=== PATIENT | female | born 1970 ===

== ENCOUNTER → 2022-01-09 | Outpatient (CLI) | payer BC | END | disposition home or self-care (01) | LOC: MAMMO 01-01 13:30 | PROVIDERS: ATTEND Internal Medicine | DX: M19.90 Unspecified osteoarthritis, unspecified site (principal); Z98.82 Breast implant status; Z72.0 Tobacco use ==

== ENCOUNTER 2023-03-18 13:03 | Emergency (ER) | payer BC ==
[~2023-03-18] VITALS: Ht 170.1 cm; Wt 74.8 kg
[~2023-03-18 13:03] MED LIST: ATORVASTATIN CA10 M1 PO; CARAFATE1 GM PO; MELOXICAM15 MG PO; PROTONIX40 M1 IV; TRAZODONE50 MG PO; ZANAFLEX4 MG PO
[2023-03-18] MEDS ORDERED: Ondansetron Hydrochloride 4 MG/2 ML VIAL IV ONE (13:25)
[2023-03-18] MEDS ORDERED: SODIUM CHLORIDE 0.9% 1,000 ML IV ONE ×2 (13:25→16:35)
[2023-03-18] MEDS ORDERED: FAMOTIDINE 50 ML IV ONE (13:25)
[2023-03-18] MEDS ORDERED: IOHEXOL 300 MG/ML 100 ML VIAL IV ONE (13:30)
[2023-03-18 14:02] LABS: BASO % 0.4 % (0.0-1.0); EOS # 0.1 10*3/uL (0.0-0.4); EOS % 0.6 % (1.0-4.0); HEMATOCRIT 48.6 % (37.0-47.0); LYMPH # 1.2 10*3/uL (1.3-4.4); MEAN CELL VOLUME 96.4 fl (81.0-99.0); MEAN CORPUSCULAR HGB 31.3 pg (27.0-31.0); MEAN CORPUSCULAR HGB CONC 32.5 g/dl (33.0-37.0); MEAN PLATELET VOLUME 9.3 fl (9.6-12.3); MONO # 1.3 10*3/uL (0.1-1.0); MONO % 13.1 % (3.0-9.0); NEUT # 7.4 10*3/uL (2.3-7.9); NEUT % 73.8 % (47.0-73.0); PLATELET COUNT AUTOMATED 249 10*3/uL (130-400); RED BLOOD COUNT 5.04 10*6/uL (4.10-5.10)
[2023-03-18 14:17] LABS: ACT PARTIAL THROMBO TIME 26.5 SECONDS (20.0-32.1)
[2023-03-18 14:30] LABS: POTASSIUM 3.7 mmol/L (3.4-5.1); TOTAL PROTEIN 7.6 gm/dL (6.0-8.0)
== END 2023-03-18 20:30 | disposition short-term general hospital (02) ==
LOC: ED 13:03
PROVIDERS: Physician Assistant Medical
DX: K46.0 Unspecified abdominal hernia with obstruction, without gangrene (principal); N17.9 Acute kidney failure, unspecified; R11.2 Nausea with vomiting, unspecified; K56.609 Unspecified intestinal obstruction, unspecified as to partial versus complete obstruction; Z98.51 Tubal ligation status; Z98.890 Other specified postprocedural states; F17.210 Nicotine dependence, cigarettes, uncomplicated

== ENCOUNTER → 2023-05-20 | Outpatient (CLI) | payer BC | END | disposition home or self-care (01) | LOC: RAD 02:06 | PROVIDERS: ATTEND Internal Medicine | DX: M50.30 Other cervical disc degeneration, unspecified cervical region (principal); M48.02 Spinal stenosis, cervical region; M25.561 Pain in right knee ==

== ENCOUNTER → 2023-07-28 | Outpatient (CLI) | payer BC | END | disposition home or self-care (01) | LOC: ORTHO 01:16 | PROVIDERS: ATTEND Orthopaedic Surgery | DX: M19.041 Primary osteoarthritis, right hand (principal); M79.641 Pain in right hand ==

== ENCOUNTER → 2023-10-03 | Outpatient (CLI) | payer BC | END | disposition home or self-care (01) | LOC: US 08:41 | PROVIDERS: ATTEND Internal Medicine | DX: K76.0 Fatty (change of) liver, not elsewhere classified (principal); M47.812 Spondylosis without myelopathy or radiculopathy, cervical region; M48.02 Spinal stenosis, cervical region; R10.32 Left lower quadrant pain; M54.2 Cervicalgia; Z90.49 Acquired absence of other specified parts of digestive tract ==

== ENCOUNTER → 2024-04-12 | Day surgery (SDC) | payer BC ==
[~2024-04-12] VITALS: Ht 172.7 cm; Wt 81.6 kg
[~2024-04-12] MED LIST changes: +ATORVASTATIN CA40 M1 PO; +BUPivacaine 0.5% 30 ML IV ONE; +HYDROCODONE-AC1 EAC1 PO; +Lactated Ringer's Solution 1,000 ML IV ONE; +Lidocaine Hydrochloride 30 ML VIAL ONE; +Lidocaine Hydrochloride 5 ML VIAL IV ONE; +NEURONTIN300 MG PO; +PANTOPRAZOLE SO40 MG PO; +PROPOFOL 200 MG/20 ML VIAL IV ONE; +TRAZODONE100 MG PO; +VISTARIL25 MG PO; +ceFAZolin sodium 2GM/20ML IV ONE; +ceFAZolin sodium/sodium chlor 20 ML IV ONE
[2024-04-12 09:09] VITALS: BP 148/82
[2024-04-12 11:24] VITALS: BP 132/75
[2024-04-12 11:39] VITALS: BP 143/68
[2024-04-12 11:52] VITALS: BP 146/71
== END | disposition home or self-care (01) ==
LOC: SDC 03-25 08:45
PROVIDERS: ATTEND Surgery
DX: C76.42 Malignant neoplasm of left upper limb (principal); E78.00 Pure hypercholesterolemia, unspecified; K21.9 Gastro-esophageal reflux disease without esophagitis; F41.9 Anxiety disorder, unspecified; F17.210 Nicotine dependence, cigarettes, uncomplicated; F10.90 Alcohol use, unspecified, uncomplicated; Z98.51 Tubal ligation status; Z90.49 Acquired absence of other specified parts of digestive tract; Z98.82 Breast implant status; Z98.890 Other specified postprocedural states; Z79.899 Other long term (current) drug therapy; Z91.048 Other nonmedicinal substance allergy status; Z83.3 Family history of diabetes mellitus

== ENCOUNTER → 2024-10-12 | Outpatient (CLI) | payer BC ==
[~2024-10-12] MED LIST changes: -BUPivacaine 0.5% 30 ML IV ONE; -Lactated Ringer's Solution 1,000 ML IV ONE; -Lidocaine Hydrochloride 30 ML VIAL ONE; -Lidocaine Hydrochloride 5 ML VIAL IV ONE; -PROPOFOL 200 MG/20 ML VIAL IV ONE; -ceFAZolin sodium 2GM/20ML IV ONE; -ceFAZolin sodium/sodium chlor 20 ML IV ONE
== END | disposition home or self-care (01) ==
LOC: US 08:16
PROVIDERS: ATTEND Internal Medicine
DX: K43.9 Ventral hernia without obstruction or gangrene (principal)

== ENCOUNTER → 2024-10-25 | Outpatient (CLI) | payer BC | LOC: ORTHO 01:44 | PROVIDERS: ATTEND Orthopaedic Surgery | DX: M19.011 Primary osteoarthritis, right shoulder (principal); M79.641 Pain in right hand ==

== ENCOUNTER → 2024-10-29 | Outpatient (CLI) | payer BC | END | disposition home or self-care (01) | LOC: RAD 08:33 | PROVIDERS: ATTEND Internal Medicine | DX: M47.817 Spondylosis without myelopathy or radiculopathy, lumbosacral region (principal); M47.815 Spondylosis without myelopathy or radiculopathy, thoracolumbar region; M41.85 Other forms of scoliosis, thoracolumbar region; M85.88 Other specified disorders of bone density and structure, other site; M54.9 Dorsalgia, unspecified ==

== ENCOUNTER → 2024-12-02 | Day surgery (SDC) | payer BC ==
[~2024-12-02] VITALS: Ht 170.1 cm; Wt 87.1 kg
[~2024-12-02] MED LIST changes: +Lactated Ringer's Solution 1,000 ML IV ONE; +Lidocaine Hydrochloride 2% 5 ML SDV IV ONE; +Lidocaine Hydrochloride 30 ML VIAL ONE; +Midazolam Hydrochloride 2 MG/2 ML VIAL IV ONE; +Ondansetron Hydrochloride 4 MG/2 ML VIAL IV ONE; +PROPOFOL 200 MG/20 ML VIAL IV ONE; +ceFAZolin sodium/sodium chlor 20 ML IV ONE
[2024-12-02 08:36] VITALS: BP 107/84
[2024-12-02 09:52] VITALS: BP 103/62
[2024-12-02 10:07] VITALS: BP 100/54
[2024-12-02 10:22] VITALS: BP 120/65
== END | disposition home or self-care (01) ==
LOC: SDC 11-26 10:15
PROVIDERS: ATTEND Orthopaedic Surgery
DX: G56.01 Carpal tunnel syndrome, right upper limb (principal); E78.5 Hyperlipidemia, unspecified; E78.00 Pure hypercholesterolemia, unspecified; F32.A Depression, unspecified; F41.9 Anxiety disorder, unspecified; K21.9 Gastro-esophageal reflux disease without esophagitis; K44.9 Diaphragmatic hernia without obstruction or gangrene; F17.200 Nicotine dependence, unspecified, uncomplicated; C44.90 Unspecified malignant neoplasm of skin, unspecified; Z79.899 Other long term (current) drug therapy; Z88.8 Allergy status to other drugs, medicaments and biological substances; Z98.890 Other specified postprocedural states; Z90.49 Acquired absence of other specified parts of digestive tract

== ENCOUNTER → 2024-12-20 | Outpatient (CLI) | payer BC ==
[~2024-12-20] MED LIST changes: -Lactated Ringer's Solution 1,000 ML IV ONE; -Lidocaine Hydrochloride 2% 5 ML SDV IV ONE; -Lidocaine Hydrochloride 30 ML VIAL ONE; -Midazolam Hydrochloride 2 MG/2 ML VIAL IV ONE; -Ondansetron Hydrochloride 4 MG/2 ML VIAL IV ONE; -PROPOFOL 200 MG/20 ML VIAL IV ONE; -ceFAZolin sodium/sodium chlor 20 ML IV ONE
== END | disposition home or self-care (01) ==
LOC: CT 01:14
PROVIDERS: ATTEND Psychiatry & Neurology Neurology
DX: R41.3 Other amnesia (principal)

== ENCOUNTER 2025-01-11 15:08 | Emergency (ER) | payer BC ==
[~2025-01-11] VITALS: Ht 170.1 cm; Wt 72.6 kg
== END 2025-01-11 16:49 | disposition home or self-care (01) ==
LOC: ED 15:08
DX: K59.00 Constipation, unspecified (principal); F17.210 Nicotine dependence, cigarettes, uncomplicated; Z79.899 Other long term (current) drug therapy